=== PATIENT | female | born 1955 ===

== ENCOUNTER → 2016-09-18 | Outpatient (CLI) | payer BC ==
--- NOTE | 2016-09-18 10:09 | MM ---
Reason for exam: screening (asymptomatic). Last mammogram was performed 1 year and 5 months ago. History: Patient is postmenopausal. Physical Findings: A clinical breast exam by your physician is recommended on an annual basis and results should be correlated with mammographic findings. MG Screening Mammo w CAD Bilateral CC and MLO view(s) were taken. Prior study comparison: April 26, 2015, bilateral MG screening mammo w CAD. October 03, 2013, bilateral MG screening mammo w CAD. July 24, 2011, bilateral digital screening mammo w/CAD. There are scattered fibroglandular densities. Finding: There are typically benign round calcifications in the left breast. There is no discrete abnormality. ASSESSMENT: Benign, BI-RAD 2 RECOMMENDATION: Routine screening mammogram of both breasts in 1 year.
== END | disposition home or self-care (01) ==
LOC: RADMAMWWP 08:10
PROVIDERS: ATTEND Family Medicine
DX: Z12.31 Encounter for screening mammogram for malignant neoplasm of breast (principal)

== ENCOUNTER → 2016-10-03 | Outpatient (CLI) | payer BC ==
--- NOTE | 2016-10-04 12:15 | EST ---
DATE OF SERVICE: 10/03/2016 AGE: 61Y SEX: F HT: 60" WT: 149 lbs. Protocol Cosmo: X Other: Stage: I Dur. of Exercise: 5:28 *Heart Rate Blood Pressure *Rest: 65 Rest: 106/66 * *Max. Achieved: 138 Maximum BP: 125/69 85% PMHR: 134 100% PMHR: 158 *METS: 6.9 INDICATIONS: Abnormal EKG MEDICATIONS: Levothyroxine. Patient was exercised for a total period of 5 minutes and 28 seconds. Peak heart rate of 138 was achieved. Maximum blood pressure of 125/69 mmHg was noted. Resting EKG shows normal sinus rhythm with normal GA interval and QRS duration and normal ST-T waves. During exercise about [address] segment depression is noted. ( ) again about [address] segment depression is noted. This exercise test shows evidence of about [address] segment depression, which could be suggestive of ischemia; however, there is a mild to minimal ST-T abnormalities from the resting EKG. Clinical correlation is suggested. If indicated, stress test with imaging study is suggested. The patient's exercise tolerance is below average. Patient did not complain of any chest pain during the test.
== END | disposition home or self-care (01) ==
LOC: RADNMMAIN 11:00
PROVIDERS: ATTEND Family Medicine
DX: R94.31 Abnormal electrocardiogram [ECG] [EKG] (principal)
CPT/HCPCS: 93017

== ENCOUNTER → 2017-08-22 | Day surgery (SDC) | payer BC ==
[2017-08-21 09:07] VITALS: BMI 29.2
[~2017-08-22] MED LIST: GLUCAGON 1 MG/ML VIAL ONE; LACTATED RINGERS 1,000 ML IV ONE; LACTATED RINGERS 1,000 ML IV SCH; LIDOCAINE 1% 20 ML VIAL (10MG/ML) FOR IV START INTRADERMA PRN; LIDOCAINE 1% INJ 10MG/ML (20 ML MDV) ONE; MIDAZOLAM 2 MG/2 ML VIAL IV PRN; PROPOFOL 10 MG/ML 20 ML VIAL IV ONE
[2017-08-22 07:07] VITALS: PULSE 69; TEMP 97.9
--- NOTE | 2017-08-22 07:48 | P.GSHP ---
History of Present Illness H&P Date: 08/22/17 Chief Complaint: Screening colonoscopy This is a 62-year-old female presents today for screening colonoscopy. Her last colonoscopy was over 10 years ago. Past Medical History Past Medical History: Thyroid Disorder Additional Past Medical History / Comment(s): recent abdominal pain and tx UTI ,states "had ekg done 2016 showed irregularities-had stress test which was ok" History of Any Multi-Drug Resistant Organisms: None Reported Past Surgical History: Hysterectomy, Tonsillectomy, Tubal Ligation Additional Past Surgical History / Comment(s): hazel cataracts Past Anesthesia/Blood Transfusion Reactions: No Reported Reaction Smoking Status: Current every day smoker - Past Family History Father Family Medical History: Cancer Medications and Allergies Home Medications Medication Instructions Recorded Confirmed Type Multivitamin [Children's 1 each PO DAILY 12/29/13 08/22/17 History Multivitamins] Levothyroxine Sodium [Synthroid] 75 mcg PO QAM 08/21/17 08/22/17 History Allergies Allergy/AdvReac Type Severity Reaction Status Date / Time No Known Allergies Allergy Verified 08/22/17 06:59 Surgical - Exam Vital Signs Temp Pulse Resp BP Pulse Ox 97.9 F 69 18 110/71 95 08/22/17 07:06 08/22/17 07:06 08/22/17 07:06 08/22/17 07:06 08/22/17 07:06 - General well developed, no distress - Eyes PERRL - ENT normal pinna - Neck no masses - Respiratory normal expansion - Cardiovascular Rhythm: regular - Abdomen Abdomen: soft, non tender Assessment and Plan Assessment: We'll perform screening colonoscopy.
--- NOTE | 2017-08-22 08:13 | P.OP ---
Date of Procedure: 08/22/17 Preoperative Diagnosis: Screening colonoscopy Postoperative Diagnosis: Rectal polyps Incomplete colonoscopy secondary to inability of bowel to dilate with air Procedure(s) Performed: Colonoscopy Anesthesia: MAC Surgeon: Jorge A Lovett Pathology: other (Rectal polyps) Condition: stable Disposition: PACU Description of Procedure: Patient's placed on the endoscopy table in the lateral position. She received IV sedation. Digital rectal exam was performed which revealed no abnormalities. The flexible colonoscope was then placed patient anus and passed to approximately 30 cm. At this point the bowel would not dilate. Several times made to maneuver the colonoscope and enter the colon. Glucagon was given. The bowel still would not dilate with air insufflation. This point the scope was withdrawn. Several small polyp seen in the rectum this was removed with a cold forcep. Patient was sent to recovery. She was scheduled for outpatient barium enema.
[2017-08-22 08:17] VITALS: BP 99/60; RESP 16
== END | disposition home or self-care (01) ==
LOC: ORWHC2ENDO 06:40
PROVIDERS: ATTEND Surgery
DX: Z12.11 Encounter for screening for malignant neoplasm of colon (principal); K62.1 Rectal polyp; K63.5 Polyp of colon; E07.9 Disorder of thyroid, unspecified; F17.210 Nicotine dependence, cigarettes, uncomplicated; Z79.899 Other long term (current) drug therapy; Z90.710 Acquired absence of both cervix and uterus
CPT/HCPCS: 88305; 45331; J1610; J2001; J2704; 45380

== ENCOUNTER → 2017-08-30 | Outpatient (CLI) | payer BC ==
--- NOTE | 2017-08-30 12:20 | FL ---
EXAMINATION TYPE: FL barium enema DATE OF EXAM: 08/30/2017 COMPARISON: NONE HISTORY: Incomplete colonoscopy last week with biopsies. TECHNIQUE: A double contrast barium enema study is performed. A total of 3 minutes 49 seconds of flu oroscopic time was utilized during procedure. 27 total images were saved to PACS. FINDINGS: Aromatherapist view of the abdomen shows overall non-obstructive bowel gas pattern. Scattered pelvi c phleboliths are present. Enema study is performed. Exam is slightly suboptimal as there is contrast leak despite balloon infla tion and there is also somewhat redundant sigmoid colon. There is successful filling to the cecum. No evidence of any intraluminal mass, obstructing or constricting lesion throughout the colon. There ar e scattered colonic diverticula with most prominent diverticulosis seen in the left and sigmoid colon . Several left-sided polyps are felt present, some somewhat broad-based. Appendix was filled and appeared normal. The terminal ileum was not refluxed. IMPRESSION: No constricting lesion.: Colonic diverticulosis. Left-sided colonic polyps felt present.
== END | disposition home or self-care (01) ==
LOC: RADFLMAIN 08:40
PROVIDERS: ATTEND Surgery
DX: K63.5 Polyp of colon (principal); Z12.10 Encounter for screening for malignant neoplasm of intestinal tract, unspecified; K57.30 Diverticulosis of large intestine without perforation or abscess without bleeding
CPT/HCPCS: 74270

== ENCOUNTER → 2019-01-03 | Outpatient (CLI) | payer BC ==
--- NOTE | 2019-01-07 08:30 | MM ---
Reason for exam: screening (asymptomatic). Last mammogram was performed 2 years and 3 months ago. History: Patient is postmenopausal. Physical Findings: A clinical breast exam by your physician is recommended on an annual basis and results should be correlated with mammographic findings. MG Screening Mammo w CAD Bilateral CC and MLO view(s) were taken. Prior study comparison: September 18, 2016, bilateral MG screening mammo w CAD. April 26, 2015, bilateral MG screening mammo w CAD. There are scattered fibroglandular densities. Asymmetric densities superiorly in both breasts appear more defined but have no clear correlate on the CC views. ASSESSMENT: Incomplete: need additional imaging evaluation, BI-RAD 0 RECOMMENDATION: Special view mammogram of both breasts. (3D) If lesion persists on supplemental views, image directed ultrasound is recommended. [facility] will attempt to contact patient to return for supplemental views and ultrasound if indicated.
== END | disposition home or self-care (01) ==
LOC: RADMAMWWP 14:26
PROVIDERS: ATTEND Family Medicine
DX: Z12.31 Encounter for screening mammogram for malignant neoplasm of breast (principal)
CPT/HCPCS: 77067

== ENCOUNTER → 2019-01-10 | Outpatient (CLI) | payer BC ==
--- NOTE | 2019-01-10 15:04 | MM ---
Reason for exam: additional evaluation requested from abnormal screening. Last mammogram was performed less than 1 month ago. History: Patient is postmenopausal. Physical Findings: Nurse Summary: less than 0.5cm nodule in the left breast at 1 o'clock (nurse kp). MG Work Up Mamm w CAD BILAT Bilateral LM and spot compression MLO view(s) were taken. Prior study comparison: January 03, 2019, bilateral MG screening mammo w CAD. September 18, 2016, bilateral MG screening mammo w CAD. There are scattered fibroglandular densities. There is no discrete abnormality. 4mm calcification left upper outer quadrant corresponds to palpable abnormality. These results were verbally communicated with the patient and result sheet given to the patient on 01/10/19. ASSESSMENT: Benign, BI-RAD 2 RECOMMENDATION: Return to routine screening mammogram schedule for both breasts.
== END | disposition home or self-care (01) ==
LOC: RADMAMWWP 13:30
PROVIDERS: ATTEND Family Medicine
DX: R92.8 Other abnormal and inconclusive findings on diagnostic imaging of breast (principal)
CPT/HCPCS: 77066

== ENCOUNTER → 2020-10-01 | Outpatient (CLI) | payer BC, MEDICARE ==
--- NOTE | 2020-10-04 14:45 | MM ---
Reason for exam: screening (asymptomatic). Last mammogram was performed 1 year and 9 months ago. History: Patient is postmenopausal. Physical Findings: A clinical breast exam by your physician is recommended on an annual basis and results should be correlated with mammographic findings. MG 3D Screening Mammo W/Cad Bilateral CC and MLO view(s) were taken. Prior study comparison: January 10, 2019, bilateral MG work up mamm w CAD BILAT. January 03, 2019, bilateral MG screening mammo w CAD. There are scattered fibroglandular densities. ASSESSMENT: Negative, BI-RAD 1 RECOMMENDATION: Routine screening mammogram of both breasts in 1 year.
== END | disposition home or self-care (01) ==
LOC: RADMAMWWP 14:14
PROVIDERS: ATTEND Family Medicine
DX: Z12.31 Encounter for screening mammogram for malignant neoplasm of breast (principal)
CPT/HCPCS: 77063; 77067

== ENCOUNTER → 2021-11-21 | Outpatient (CLI) | payer MEDICARE ==
--- NOTE | 2021-11-22 08:23 | MM ---
Reason for Exam: Screening (asymptomatic). Last mammogram was performed 1 year(s) and 2 month(s) ago. Patient History: Menarche at age 10. First Full-Term at age 16. Left ovary removed at age 33. Right ovary removed at age 33. Hysterectomy at age 33. Postmenopausal. Patient has history of breast feeding. Risk Values: Angélica 5 year model risk: 1.3%. NCI Lifetime model risk: 4.6%. Prior Study Comparison: 01/03/2019 Bilateral Screening Mammogram, [facility]. 01/10/2019 Bilateral Diagnostic Mammogram, [facility]. 10/01/2020 Bilateral Screening Mammogram, [facility]. Tissue Density: The breast tissue is heterogeneously dense. This may lower the sensitivity of mammography. Findings: Analyzed By CAD. There is no suspicious group of microcalcifications or new suspicious mass in either breast. Overall Assessment: Negative, BI-RAD 1 Management: Screening Mammogram of both breasts in 1 year. A clinical breast exam by your physician is recommended on an annual basis and results should be correlated with mammographic findings. Electronically signed and approved by: Sony Dickey M.D. Radiologis
== END | disposition home or self-care (01) ==
LOC: RADMAMWWP 10:02
PROVIDERS: ATTEND Family Medicine
DX: Z12.31 Encounter for screening mammogram for malignant neoplasm of breast (principal)
CPT/HCPCS: 77063; 77067

== ENCOUNTER → 2022-11-29 | Outpatient (CLI) | payer MEDICARE ==
--- NOTE | 2022-11-30 08:19 | MM ---
Reason for Exam: Screening (asymptomatic). Last screening mammogram was performed 12 month(s) ago. Patient History: Menarche at age 10. First Full-Term at age 16. Left ovary removed at age 33. Right ovary removed at age 33. Hysterectomy at age 33. Postmenopausal. Patient has history of breast feeding. Risk Values: Angélica 5 year model risk: 1.4%. NCI Lifetime model risk: 4.4%. Prior Study Comparison: 04/26/2015 Bilateral Screening Mammogram, [facility]. 09/18/2016 Bilateral Screening Mammogram, [facility]. 01/03/2019 Bilateral Screening Mammogram, [facility]. 01/10/2019 Bilateral Diagnostic Mammogram, [facility]. 10/01/2020 Bilateral Screening Mammogram, [facility]. 11/21/2021 Bilateral MG 3D screening mammo w/cad, [facility]. Tissue Density: There are scattered fibroglandular densities. Findings: Analyzed By CAD. There is no suspicious group of microcalcifications or new suspicious mass in either breast. Benign calcification within the left breast. Overall Assessment: Benign, BI-RAD 2 Management: Screening Mammogram of both breasts in 1 year. A clinical breast exam by your physician is recommended on an annual basis and results should be correlated with mammographic findings. Note on Angélica scores and lifetime risk: 1. A Angélica score greater than 3% is considered moderate risk. If this is the case, consider specialist referral to assess eligibility for a risk reducing agent. If overall lifetime risk for the development of breast cancer is 20% or higher, the patient may qualify for future screening with alternating mammogram and breast MRI. Electronically signed and approved by: Kirk Bucio D.O.
== END | disposition home or self-care (01) ==
LOC: RADMAMWWP 11:17
PROVIDERS: ATTEND Family Medicine
DX: Z12.31 Encounter for screening mammogram for malignant neoplasm of breast (principal); Z78.0 Asymptomatic menopausal state
CPT/HCPCS: 77063; 77067

== ENCOUNTER 2023-11-21 12:30 | Day surgery (SDC) | payer MEDICARE ==
[~2023-11-21 12:30] MED LIST changes: -GLUCAGON 1 MG/ML VIAL ONE; +LACTATED RINGERS 1,000 ML BAG ONE; -LACTATED RINGERS 1,000 ML IV ONE; -LACTATED RINGERS 1,000 ML IV SCH; -LIDOCAINE 1% 20 ML VIAL (10MG/ML) FOR IV START INTRADERMA PRN; -LIDOCAINE 1% INJ 10MG/ML (20 ML MDV) ONE; -MIDAZOLAM 2 MG/2 ML VIAL IV PRN; -PROPOFOL 10 MG/ML 20 ML VIAL IV ONE
[2023-11-21] MEDS ORDERED: PROPOFOL 10 MG/ML 20 ML VIAL IV ONE (12:36)
--- NOTE | 2023-12-14 17:07 | P.PCN ---
Date of Procedure: 11/21/23 Procedure(s) Performed: This an addendum to the procedure was performed on 11/21/2023 Procedure performed colonoscopy Procedure. Scope was advanced to the cecum. Careful examination was performed. Scattered sigmoid diverticulosis seen.
== END 2023-11-21 13:46 | disposition home or self-care (01) ==
LOC: ORWHC2ENDO 12:30
PROVIDERS: ATTEND Internal Medicine Gastroenterology
DX: R19.5 Other fecal abnormalities (principal); E07.9 Disorder of thyroid, unspecified; Z79.890 Hormone replacement therapy
CPT/HCPCS: 45378